=== PATIENT | female | born 1960 | race Caucasian/White ===

== ENCOUNTER 2021-09-01 10:19 | Day surgery (SDC) | payer OTHER ==
[~2021-09-01] VITALS: Ht 165.1 cm; Wt 121.6 kg
[~2021-09-01 10:19] MED LIST: CALCIUM PO; D3 PO; VITAMIN B12 PO; [UNRECOGNIZED DRUG - OTHER] PO
[2021-09-01 15:15] VITALS: BP 152/88
== END 2021-09-01 15:31 | disposition home or self-care (01) | DRG 951 ==
LOC: ENDO 10:19
PROVIDERS: ATTEND Surgery
PROC: 0DBH8ZX Excision of Cecum, Via Natural or Artificial Opening Endoscopic, Diagnostic (ICD-10-PCS; principal; 2021-09-01)
DX: Z12.11 Encounter for screening for malignant neoplasm of colon (principal); D12.0 Benign neoplasm of cecum